=== PATIENT | male | born 1985 | race African-American/Black ===

== ENCOUNTER 2017-03-14 12:28 | Emergency (ER) | payer MEDICARE, MEDICAID ==
[~2017-03-14] VITALS: Ht 182.9 cm; Wt 64.0 kg
[2017-03-14 12:29] VITALS: BP 120/70
== END 2017-03-14 14:21 | disposition home or self-care (01) ==
LOC: ER 13:42
DX: R21 Rash and other nonspecific skin eruption (principal); R59.0 Localized enlarged lymph nodes; G47.419 Narcolepsy without cataplexy
CPT/HCPCS: 99281; 99283

== ENCOUNTER 2019-08-08 10:17 | Emergency (ER) | payer MEDICARE, OTHER ==
[~2019-08-08] VITALS: Ht 182.9 cm; Wt 63.0 kg
[2019-08-08 10:31] VITALS: BP 107/62
== END 2019-08-08 11:28 | disposition home or self-care (01) ==
LOC: ER 10:17
DX: Z48.02 Encounter for removal of sutures (principal)
CPT/HCPCS: 99281